=== PATIENT | male | born 1970 | race Two or more races ===

== ENCOUNTER 2020-11-17 01:25 | Emergency (ER) | payer SELFPAY ==
[~2020-11-17] VITALS: Ht 182.9 cm; Wt 113.4 kg
[2020-11-17 02:43] LABS: Hematocrit 32.9 % (41.0-53.0); Hemoglobin 10.9 g/dL (13.5-17.5); Mean Corpuscular Hgb Conc. 33.2 g/dL (32.0-36.0); White Blood Cell 4.1 10^3/uL (4.4-10.8)
[2020-11-17 02:44] LABS: INR 1.13 (0.9-1.15); Partial Thromboplastin Time 27.3 sec (23.0-31.2)
[2020-11-17 02:45] LABS: Mean Corpuscular Hemoglobin 26.2 pg (28.0-32.0); Mean Corpuscular Volume 78.8 fL (80.0-100.0); Platelet Count (auto) 78 10^3/uL (140-450); Red Blood Cells 4.18 10^6/uL (4.5-5.90)
[2020-11-17 02:46] LABS: Alanine Aminotransferase 17 U/L (16-61); Anion Gap 6 (5-15); Aspartate Aminotransferase 18 U/L (15-37); BUN/Creatinine Ratio 14.6; Blood Urea Nitrogen 13 mg/dL (7-18); Calcium 8.1 mg/dL (8.5-10.1); Carbon Dioxide 23 mmol/L (21-32); Chloride 113 mmol/L (98-107); GFR African American 116 mL/min; GFR Non-African American 96 mL/min; Glucose 122 mg/dL (74-106); Magnesium 2.1 mg/dL (1.6-2.6); Potassium 3.4 mmol/L (3.5-5.1); Sodium 142 mmol/L (136-145)
[2020-11-17 02:50] LABS: Red Cell Distribution Width 21.9 % (11.8-14.3)
[2020-11-17 02:51] LABS: Basophils % (manual) 0 (0.0-2.0); Blast Cells 0; Eosinophils % (manual) 0 (0-7); Metamyelocytes % 0; Myelocytes % 0; Promyelocytes % 0; Reactive Lymphocytes 0
[2020-11-17 02:52] LABS: Alkaline Phosphatase 210 U/L (45-117); Bilirubin, Total 1.4 mg/dL (0.2-1.0); Total Protein 6.3 g/dL (6.4-8.2)
[2020-11-17 03:31] VITALS: BP 96/44
[2020-11-17 04:27] LABS: Band Neutrophils % (manual) 1; Lymphocytes % (manual) 32 (10.0-50.0)
[2020-11-17 04:28] LABS: Monocytes % (manual) 22 (0-12)
== END 2020-11-17 04:18 | disposition home or self-care (01) ==
LOC: EDBD 01:25 → ER 01:25
DX: R07.89 Other chest pain (principal); I10 Essential (primary) hypertension; J44.9 Chronic obstructive pulmonary disease, unspecified
CPT/HCPCS: 36415; 71045; 80053; 83735; 83880; 84484; 85007; 85027; 85379; 85610; 85730; 93005